=== PATIENT | male | born 1925 | race Caucasian/White ===

== ENCOUNTER 2016-07-22 18:25 | Emergency (ER) | payer MEDICARE, OTHER ==
[2016-07-22] MEDS ORDERED: SODIUM CHLORIDE 0.9% 250 ML 250 ML IV ONE (18:43)
[2016-07-22 19:11] LABS: ALBUMIN 3.7 gm/dl (3.4-5.0); CALCIUM 8.8 mg/dl (8.5-10.1); POTASSIUM 4.5 mMol/L (3.5-5.1)
[2016-07-22 19:23] LABS: BASOPHILS % (AUTO) 1 % (0-3); EOSINOPHILS % (AUTO) 0 % (0-9); HEMATOCRIT 45 % (39-53); MEAN CORPUSCULAR HGB CONC 33.3 gm/dl (32.0-36.0); MEAN CORPUSCULAR VOLUME 94 fL (80-100); MONOCYTES % (AUTO) 7.2 % (0-12); NEUTROPHILS % (AUTO) 85.9 % (37-80)
[2016-07-22] MEDS ORDERED: LORAZEPAM 2 MG/ML SOL IV ONE (19:28)
[2016-07-22 19:35] LABS: APPEARANCE,URINE Cloudy; BILIRUBIN,URINE NEGATIVE (NEGATIVE); COLOR,URINE Yellow; GLUCOSE, URINE (UA) NEGATIVE (NEGATIVE); KETONES,URINE 1+ (NEGATIVE); LEUKOCYTE ESTERASE ,URINE 1+ (NEGATIVE); NITRATE,URINE NEGATIVE (NEGATIVE); OCCULT BLOOD,URINE 2+ (NEG-TRACE); PH,URINE 5.5
[2016-07-22 19:49] VITALS: TEMP 99.9; O2SAT 92
[2016-07-22 19:51] VITALS: BP 170/68; PULSE 85; RESP 22
[2016-07-22 19:57] LABS: RBC,URINE 0-4 (0-3AV/HPF); WBC,URINE 60-70 (0-5AV/HPF)
== END 2016-07-22 19:47 | disposition short-term general hospital (02) | DRG 65 ==
LOC: ED 18:25
DX: I63.9 Cerebral infarction, unspecified (principal); G81.91 Hemiplegia, unspecified affecting right dominant side; R47.01 Aphasia; R29.810 Facial weakness; R29.725 NIHSS score 25
CPT/HCPCS: 36415; 70450; 71010; 80053; 81001; 82550; 83880; 84484; 85025; 85610; 87077; 87088; 87186; 93005; 96365; 99291